=== PATIENT | female | born 1965 | race African-American/Black ===

== ENCOUNTER 2018-09-08 15:19 | Emergency (ER) | payer OTHER ==
[~2018-09-08] VITALS: Ht 165.1 cm; Wt 108.9 kg
[2018-09-08 16:42] VITALS: BP 111/79
== END 2018-09-08 16:42 | disposition home or self-care (01) ==
LOC: ER 15:19
DX: H10.33 Unspecified acute conjunctivitis, bilateral (principal); F17.210 Nicotine dependence, cigarettes, uncomplicated